=== PATIENT | male | born 1985 | race Caucasian/White ===

== ENCOUNTER 2020-11-28 00:52 | Emergency (ER) | payer OTHER ==
[2020-11-28] MEDS ORDERED: Ondansetron 4 MG Tab.DIS PO ONE (00:53)
[2020-11-28] MEDS ORDERED: Ketorolac 30 MG/ML SDV IVPUSH ONE (00:59)
[2020-11-28] MEDS ORDERED: Sodium Chloride 0.9% 1,000 ML IV ONE (00:59)
--- NOTE | 2020-11-28 01:17 | EDM.PDOC ---
ED HPI GENERAL MEDICAL PROBLEM - General Chief Complaint: Flank Pain Stated Complaint: GALLSTONE Time Seen by Provider: 11/28/20 01:05 Source of Information: Reports: Patient, RN, RN Notes Reviewed History Limitations: Reports: No Limitations - History of Present Illness INITIAL COMMENTS - FREE TEXT/NARRATIVE: Patient is a 35-year-old male who presents to ER with complaint of left flank pain that began about midnight tonight. He states he has had a kidney stone in the past, and this episode is very similar to that. Patient states he had severe pain, did urinate, and became nauseated and vomited x1. Patient denies any blood in the urine. Patient rates pain 7/10. States after the pain began he was unable to urinate again. Patient denies any fever chills. Denies any previous health problems. Onset: Today, Sudden Left Flank Pain Score (Numeric/FACES): 5 - Related Data Allergies Allergy/AdvReac Type Severity Reaction Status Date / Time Penicillins Allergy Cannot Verified 11/28/20 01:00 Remember Home Meds: Home Meds . [No Known Home Meds] 11/28/20 [History] Past Medical History Genitourinary History: Reports: Renal Calculus Social & Family History - Tobacco Use Tobacco Use Status *Q: Never Tobacco User - Recreational Drug Use Recreational Drug Use: No ED ROS GENERAL - Review of Systems Review Of Systems: Comprehensive ROS is negative, except as noted in HPI. ED EXAM, RENAL/ - Physical Exam Exam: See Below Exam Limited By: No Limitations General Appearance: Alert, WD/WN, No Apparent Distress Eye Exam: Bilateral Eye: EOMI, Normal Inspection Ears: Normal External Exam, Hearing Grossly Normal Nose: Normal Inspection Throat/Mouth: Normal Inspection, Normal Voice, No Airway Compromise Head: Atraumatic, Normocephalic Neck: Normal Inspection, Supple, Non-Tender, Full Range of Motion Respiratory/Chest: No Respiratory Distress, Lungs Clear, Normal Breath Sounds, No Accessory Muscle Use, Chest Non-Tender Cardiovascular: Normal Peripheral Pulses, Regular Rate, Rhythm, No Edema, No Gallop, No JVD, No Murmur, No Rub GI/Abdominal: Normal Bowel Sounds, Soft, Non-Tender, No Organomegaly, No Distention, No Abnormal Bruit, No Mass (Male) Exam: Deferred Rectal (Males) Exam: Deferred Back Exam: Normal Inspection, Full Range of Motion, CVA Tenderness (L) Extremities: Normal Inspection, Normal Range of Motion, Non-Tender, Normal Capillary Refill, No Pedal Edema Neurological: Alert, Oriented, CN II-XII Intact, Normal Cognition, Normal Gait, Normal Reflexes, No Motor/Sensory Deficits Psychiatric: Normal Affect, Normal Mood Skin Exam: Warm, Dry, Intact, Normal Color, No Rash Lymphatic: No Adenopathy Course - Vital Signs Last Recorded V/S: Last Vital Signs Temp 97.6 F 11/28/20 01:00 Pulse 63 11/28/20 01:00 Resp 16 11/28/20 01:00 BP 130/86 11/28/20 01:00 Pulse Ox 99 11/28/20 01:00 - Orders/Labs/Meds Labs: Laboratory Tests 11/28/20 11/28/20 11/28/20 Range/Units 00:59 01:04 01:04 WBC 6.3 (5.0-10.0) 10^3/uL RBC 4.68 (4.6-6.2) 10^6/uL Hgb 14.9 (14.0-18.0) g/dL Hct 42.1 (40.0-54.0) % MCV 90.0 (80-100) fL MCH 31.8 (27.0-34.0) pg MCHC 35.4 H (33.0-35.0) g/dL Plt Count 248 (150-450) 10^3/uL Neut % (Auto) 34.3 L (42.2-75.2) % Lymph % (Auto) 54.7 H (20.5-50.1) % [place] % (Auto) 8.1 H (2-8) % Eos % (Auto) 2.4 (1.0-3.0) % Baso % (Auto) 0.5 (0.0-1.0) % Sodium 141 (136-145) mmol/L Potassium 3.8 (3.5-5.1) mmol/L Chloride 100 (98-107) mmol/L Carbon Dioxide 29 (21-32) mmol/L Anion Gap 15.8 H (7-13) mEq/L BUN 15 (7-18) mg/dL Creatinine 1.30 (0.70-1.30) mg/dL Est Cr Clr Drug Dosing 76.00 mL/min Estimated GFR (MDRD) > 60 BUN/Creatinine Ratio 11.5 (No establ ref range) Glucose 113 H (74-99) mg/dL Calcium 9.1 (8.5-10.1) mg/dL Total Bilirubin 0.5 (0.2-1.0) mg/dL AST 25 (15-37) U/L ALT 45 (16-63) U/L Alkaline Phosphatase 58 (46-116) U/L Total Protein 7.5 (6.4-8.2) g/dL Albumin 4.4 (3.4-5.0) g/dL Globulin 3.1 Albumin/Globulin Ratio 1.4 Urine Color Yellow (YELLOW) Urine Appearance Slightly cloudy (CLEAR) Urine pH 5.5 (5.0-9.0) Ur Specific [place] >= 1.030 (1.005-1.030) Urine Protein Negative (NEGATIVE) Urine Glucose (UA) Negative (NEGATIVE) Urine Ketones Negative (NEGATIVE) Urine Occult Blood Moderate H (NEGATIVE) Urine Nitrite Negative (NEGATIVE) Urine Bilirubin Negative (NEGATIVE) Urine Urobilinogen 0.2 (0.2-1.0) mg/dL Ur Leukocyte Esterase Negative (NEGATIVE) Urine RBC 10-20 H /HPF Urine WBC 0-5 (0-5/HPF) /HPF Ur Epithelial Cells Rare (NOT SEEN) /HPF Amorphous Sediment Few (NOT SEEN) /HPF Urine Bacteria Few (0-FEW/HPF) /HPF Urine Mucus Rare (NOT SEEN) /LPF Meds: Medications Discontinued Medications Generic Name Dose Route Start Last Admin Trade Name Freq PRN Reason Stop Dose Admin Sodium Chloride 1,000 mls @ 999 mls/hr 11/28/20 00:59 11/28/20 01:08 Normal Saline IV 11/28/20 01:59 999 mls/hr .BOLUS ONE Administration Ketorolac Tromethamine 30 mg 11/28/20 00:59 11/28/20 01:08 Toradol IVPUSH 11/28/20 01:00 30 mg ONETIME ONE Administration Ondansetron HCl Confirm 11/28/20 02:43 11/28/20 02:45 Zofran Odt Administered 11/28/20 02:44 Not Given Dose 4 mg .ROUTE .STK-MED ONE Tamsulosin HCl 0.4 mg 11/28/20 02:36 11/28/20 02:42 Flomax PO 11/28/20 02:37 0.4 mg ONETIME ONE Administration - Radiology Interpretation Free Text/Narrative:: CT Abdomen/Pelvis wo contrast: PROCEDURE INFORMATION: Exam: CT Abdomen And Pelvis Without Contrast Exam date and time: 11/28/2020 2:01 AM Age: 35 years old Clinical indication: Other: Trace hematuria; Additional info: Left flank pain TECHNIQUE: Imaging protocol: Computed tomography of the abdomen and pelvis without contrast. Radiation optimization: All CT scans at this facility use at least one of these dose optimization techniques: automated exposure control; mA and/or kV adjustment per patient size (includes targeted exams where dose is matched to clinical indication); or iterative reconstruction. COMPARISON: No relevant prior studies available. FINDINGS: Liver: Normal. No mass. Gallbladder and bile ducts: Normal. No calcified stones. No ductal dilation. Pancreas: Normal. No ductal dilation. Spleen: Normal. No splenomegaly. Adrenal glands: Normal. No mass. Kidneys and ureters: 3 mm obstructing stone at the left ureteral vesicle junction causing hydronephrosis of the left kidney as well as hydroureter. Bilateral nonobstruc ting renal calculi measuring 2-3 mm each. Stomach and bowel: Unremarkable. No obstruction. No mucosal thickening. Appendix: No evidence of appendicitis. Intraperitoneal space: Unremarkable. No free air. No significant fluid collection. Vasculature: Unremarkable. No abdominal aortic aneurysm. Lymph nodes: Unremarkable. No enlarged lymph nodes. Urinary bladder: Unremarkable as visualized. Reproductive: Unremarkable as visualized. Bones/joints: Unremarkable. No acute fracture. Soft tissues: Unremarkable. IMPRESSION: 1. 3 mm obstructing stone at the left ureteral vesicle junction causing hydronephrosis of the left kidney as well as hydroureter. 2. Bilateral nonobstructing renal calculi measuring 2-3 mm each. Thank you for allowing us to participate in the care of your patient. Dictated and Authenticated by: Jai Rocha MD 11/28/2020 2:30 AM Central Time ([place] & [place]) See rad report - Re-Assessments/Exams Free Text/Narrative Re-Assessment/Exam: 11/28/20 06:23 Discussed patient case with Dr. Vallecillo who states the stone will likely pass on it's own and the patient can make an appointment for urology follow up. Patient was called and this information relayed to him. Also sent a script for Flomax to the patient's pharmacy. Departure - Departure Time of Disposition: 02:42 Disposition: Home, Self-Care 01 Condition: Fair Clinical Impression: Kidney stone on left side Hydronephrosis Qualifiers: Hydronephrosis type: with renal and ureteral calculous obstruction Qualified Code(s): N13.2 - Hydronephrosis with renal and ureteral calculous obstruction - Discharge Information *PRESCRIPTION DRUG MONITORING PROGRAM REVIEWED*: No *COPY OF PRESCRIPTION DRUG MONITORING REPORT IN PATIENT HA: No Instructions: Kidney Stones, [id number], Flank Pain, Adult, [id number], Dietary Guidelines to Help Prevent Kidney Stones Forms: ED Department Discharge Additional Instructions: I will call you between 6:30-7:00am with instructions from Urology Return to ER with any worsening of symptoms Follow up with Urology RX: Zofran for nausea as needed Sepsis Event Note (ED) - Evaluation Sepsis Screening Result: No Definite Risk - Focused Exam Vital Signs: Vital Signs Temp Pulse Resp BP Pulse Ox 11/28/20 01:00 97.6 F 63 16 130/86 99
[2020-11-28 01:33] LABS: ANION GAP 15.8 mEq/L (7-13); CHLORIDE,CL 100 mmol/L (98-107); SODIUM,NA 141 mmol/L (136-145)
--- NOTE | 2020-11-28 02:31 | CT ---
PROCEDURE INFORMATION: Exam: CT Abdomen And Pelvis Without Contrast Exam date and time: 11/28/2020 2:01 AM Age: 35 years old Clinical indication: Other: Trace hematuria; Additional info: Left flank pain TECHNIQUE: Imaging protocol: Computed tomography of the abdomen and pelvis without contrast. Radiation optimization: All CT scans at this facility use at least one of these dose optimization techniques: automated exposure control; mA and/or kV adjustment per patient size (includes targeted exams where dose is matched to clinical indication); or iterative reconstruction. COMPARISON: No relevant prior studies available. FINDINGS: Liver: Normal. No mass. Gallbladder and bile ducts: Normal. No calcified stones. No ductal dilation. Pancreas: Normal. No ductal dilation. Spleen: Normal. No splenomegaly. Adrenal glands: Normal. No mass. Kidneys and ureters: 3 mm obstructing stone at the left ureteral vesicle junction causing hydronephrosis of the left kidney as well as hydroureter. Bilateral nonobstructing renal calculi measuring 2-3 mm each. Stomach and bowel: Unremarkable. No obstruction. No mucosal thickening. Appendix: No evidence of appendicitis. Intraperitoneal space: Unremarkable. No free air. No significant fluid collection. Vasculature: Unremarkable. No abdominal aortic aneurysm. Lymph nodes: Unremarkable. No enlarged lymph nodes. Urinary bladder: Unremarkable as visualized. Reproductive: Unremarkable as visualized. Bones/joints: Unremarkable. No acute fracture. Soft tissues: Unremarkable. IMPRESSION: 1. 3 mm obstructing stone at the left ureteral vesicle junction causing hydronephrosis of the left kidney as well as hydroureter. 2. Bilateral nonobstructing renal calculi measuring 2-3 mm each.
[2020-11-28] MEDS ORDERED: Tamsulosin 0.4 MG Cap.ER PO ONE (02:36)
[2020-11-28] MEDS ORDERED: Ondansetron 4 MG Tab.DIS ONE (02:43)
== END 2020-11-28 02:47 | disposition home or self-care (01) ==
LOC: DL.ED 00:52
DX: N13.2 Hydronephrosis with renal and ureteral calculous obstruction (principal); Z88.0 Allergy status to penicillin
CPT/HCPCS: 36415; 74176; 80053; 81001; 85025; 96374; 99284; A9270; J1885; J7030; 99283